=== PATIENT | female | born 1960 | race Caucasian/White ===

== ENCOUNTER → 2017-02-10 | Outpatient (CLI) | payer OTHER | LOC: FIMAGING 12:38 | PROVIDERS: ATTEND Family Medicine | DX: Z12.31 Encounter for screening mammogram for malignant neoplasm of breast (principal) | CPT/HCPCS: G0202 ==

== ENCOUNTER 2017-04-27 11:03 | Day surgery (SDC) | payer OTHER ==
[2017-04-27] MEDS ORDERED: LR 1,000 ML IV ONE (11:34)
[2017-04-27] MEDS ORDERED: LIDOCAINE 1% 2 ML INJ ID PRN (11:34)
[2017-04-27] MEDS ORDERED: ceFAZolin 2 GM/SWFI 2 GM/20 ML SYR IVP ONE (12:05)
[2017-04-27] MEDS ORDERED: ONDANSETRON 4 MG/2 ML VIAL IVP PRN (12:07)
[2017-04-27] MEDS ORDERED: HYDROCODONE/APAP 5/325 TAB PO PRN (12:07)
[2017-04-27] MEDS ORDERED: DEXAMETHASONE 4 MG/ML VIAL IVP PRN (12:07)
[2017-04-27] MEDS ORDERED: fentaNYL 100 MCG/2 ML INJ IVP PRN (12:07)
[2017-04-27] MEDS ORDERED: HYDROmorphONE/DILAUDID 1 MG/ML INJ IVP PRN (12:07)
[2017-04-27] MEDS ORDERED: NALOXONE HCL 0.4 MG/ML INJ IVP PRN (12:07)
[2017-04-27] MEDS ORDERED: MIDAZOLAM 2 MG/2 ML VIAL IVP ONE (12:07)
[2017-04-27] MEDS ORDERED: ALBUTEROL 3 ML DEYVIAL IH PRN (12:07)
--- NOTE | 2017-04-27 12:09 | PDANEPAE ---
ANE History of Present Illness L Foot ANE Past Medical History - Cardiovascular History Hx Hypertension: No Hx Arrhythmias: No Hx Chest Pain: No Hx Coronary Artery / Peripheral Vascular Disease: No Hx CHF / Valvular Disease: No Hx Palpitations: No - Pulmonary History Hx COPD: No Hx Asthma/Reactive Airway Disease: No Hx Recent Upper Respiratory Infection: No Hx Oxygen in Use at Home: No Hx Sleep Apnea: No Sleep Apnea Screening Result - Last Documented: Negative - Neurologic History Hx Cerebrovascular Accident: No Hx Seizures: No Hx Dementia: No - Endocrine History Hx Diabetes: No - Renal History Hx Renal Disorders: No - Liver History Hx Hepatic Disorders: No - Neurological & Psychiatric Hx Hx Neurological and Psychiatric Disorders: Yes Neurological / Psychiatric History Comment: neuropathy in feet - Cancer History Hx Cancer: No - Congenital Disorder History Hx Congenital Disorders: No - GI History Hx Gastrointestinal Disorders: No - Other Health History Other Health History: adult acne - Chronic Pain History Chronic Pain: No - Surgical History Prior Surgeries: colonoscopy. 2013 breast implants. abd mesh ANE Review of Systems Review of Systems: - Exercise capacity METS (RN): 4 METS ANE Patient History - Allergies Allergies/Adverse Reactions: Sulfa (Sulfonamide Antibiotics) Allergy (Severe, Verified 04/14/17 14:22) RASH,ITCHING,GETS VERY HYPER - Home Medications Home Medications: Hormones 06/08/14 [Last Taken 04/27/17] Azelastine 04/14/17 [Last Taken 04/27/17] Climara Pro Patch 04/14/17 [Last Taken 04/27/17] Progesterone, Micronized 04/14/17 [Last Taken 04/27/17] Zolpidem Tartrate 04/14/17 [Last Taken 04/25/17] - NPO status NPO Since - Liquids (Date): 04/27/17 NPO Since - Liquids (Time): 07:00 NPO Since - Solids (Date): 04/26/17 NPO Since - Solids (Time): 21:00 - Smoking Hx Smoking Status: Never smoked - Family Anes Hx Family Hx Anesthesia Complications: none ANE Labs/Vital Signs - Vital Signs Blood Pressure: 129/81 Heart Rate: 83 Respiratory Rate: 12 O2 Sat (%): 95 Height: 162.56 cm Weight: 55.792 kg ANE Physical Exam - Airway Neck exam: FROM Mallampati Score: Class 2 - Pulmonary Pulmonary: clear to auscultation - Cardiovascular Cardiovascular: regular rate and rhythym - ASA Status ASA Status: I ANE Anesthesia Plan Anesthesia Plan: MAC
[2017-04-27] MEDS ORDERED: PROPOFOL/EMULSION 500 MG/50 ML BOTTLE IV ONE ×3 (12:13→14:15)
[2017-04-27] MEDS ORDERED: HYDROmorphONE/DILAUDID 2 MG/ML INJ IVP PRN (12:13)
[2017-04-27] MEDS ORDERED: ROPIVACAINE HCL 150 MG/30 ML INJ ONE (12:14)
[2017-04-27] MEDS ORDERED: LIDOCAINE 2% 100 MG/5 ML SYR ONE (12:14)
[2017-04-27] MEDS ORDERED: LIDOCAINE 0.5% 50 ML SDV ONE (12:15)
[2017-04-27] MEDS ORDERED: BACITRACIN 50,000 UNITS/10 ML SYR IRR ONE (12:15)
[2017-04-27] MEDS ORDERED: DEXAMETHASONE 4 MG/ML VIAL ONE ×2 (12:15→14:19)
[2017-04-27] MEDS ORDERED: fentaNYL 100 MCG/2 ML INJ ONE ×2 (12:18→14:11)
[2017-04-27] MEDS ORDERED: BUPIVACAINE 0.5% 10 ML SDV ONE ×3 (12:55→14:59)
[2017-04-27] MEDS ORDERED: ONDANSETRON 4 MG/2 ML VIAL ONE (14:19)
[2017-04-27] MEDS ORDERED: HYDROCODONE/APAP 5/325 TAB ONE (15:31)
--- NOTE | 2017-04-27 15:47 | POSTOPPROG ---
Post Op Note Date of Operation: 04/27/17 Surgeon: María Galarza Mold Runner: none Anesthesiologist: Jed Mark MD Pre-op Diagnosis: hallux rigidus left Post-op Diagnosis: hallux rigidus left Indication: pain first mtpj . osteorthritis Procedure: cheilectomy with sun implant arthroplasty:CARTIVA IMPLANT Findings: advanced degeneration first MTPJ Inf/Abcess present in the surg proc area at time of surgery?: No Depth: Deep Incisional (Fascial) EBL: Minimal Complications: none
[2017-04-27 15:48] VITALS: TEMP 97.9
[2017-04-27 16:13] VITALS: BP 117/72; PULSE 78; RESP 14; O2SAT 96
--- NOTE | 2017-04-27 18:27 | GOP ---
[f rep st] OPERATIVE REPORT DATE OF OPERATION: 04/27/2017 SURGEON: María Galarza DPM ANESTHESIA: Monitored anesthesia care with light general. ANESTHESIOLOGIST: Jed Mark DO. PREOPERATIVE DIAGNOSIS: Hallux rigidus, left foot. POSTOPERATIVE DIAGNOSIS: Hallux rigidus, left foot. PROCEDURE PERFORMED: Cheilectomy with sun implant arthroplasty utilizing Cartiva implant. FINDINGS: INDICATIONS: Pain in the 1st metatarsophalangeal joint, progressing over years. At this time, patie nt elects to proceed with surgery. Preoperative x-rays demonstrate loss of joint space, dorsal bone spurring at the 1st metatarsal head and base of the phalanx. Degenerative changes of the 1st metatar sophalangeal joint. DESCRIPTION OF PROCEDURE: The patient was brought into the operating room, placed on the operating t able in the supine position. Intravenous sedation administered by the anesthesiologist. A posterior tibial peripheral nerve block was obtained utilizing a total of 20 cc of 1:1:1 mix of 1% xylocaine p shonda, 0.5% ropivacaine plain and 0.5% Marcaine plain. The lower extremity was prepped and draped in the usual sterile manner. After the limb had been elevated, it was exsanguinated with an Esmarch ban dage, and ankle tourniquet was inflated to 200 mmHg, and the procedure was begun. Webril padding uti lized under the ankle cuff. Attention was directed towards the dorsal medial aspect of the 1st metatarsophalangeal joint where a linear incision was created. Incision was carefully deepened with care to retract neurovascular stru ctures and clamp and cauterize bleeders. Tissue was noted to be synovitic at the 1st metatarsophalan geal joint, dorsal osteophyte very prominent at the base of the proximal phalanx. This was resected with a rongeur. Dorsal bone spur evident on the 1st metatarsal head, and the dorsal 80% of the carti jeffrey of the 1st metatarsal head was absent, exposed bone. More plantarly, the cartilage was noted to be thin. On the base of the proximal phalanx, the dorsal 40% of the cartilage was absent, plantarly thin. Utilizing a sagittal saw, a dorsal bone spur was resected and the site smoothened dorsally. The sagittal saw was also utilized to resect dorsal prominence at the base of the phalanx as well. S ites smoothened with a powered rotating bur. The wound was copiously irrigated with bacitracin irrig ation solution. K-wire was then driven down through the 1st metatarsal head in preparation for place ment of the implant. C-arm pictures confirming planned alignment and positioning. Then, utilizing [employer] drill bit, an 8 mm hole was created. Note preoperatively, intraoperatively it was decided that the 8 mm implant would fit the best. The site was drilled just shy of 3 mm. The wound was newspaper copy editor iously irrigated with bacitracin irrigation solution, and then the 8 mm Cartiva implant was placed wi thin the drill hole. It seated itself very well. Measurements were taken prior to placing the Carti va implant of the drill hole to ensure that the implant would not sink in too far, and then once the implant was placed, it was between 2-3 mm protruding medially and laterally. With passive range of m otion of the hallux, there was no impingement. Implant appeared to be seated very nicely. Hallux al ignment excellent. The wound was copiously irrigated with bacitracin irrigation solution. Capsular closure achieved with 2-0 and 3-0 Vicryl. Ankle tourniquet was released, and a normal hyperemic resp onse was noted to all digits. Subcutaneous closure achieved with 4-0 Monocryl, and the skin was clos ed with 4-0 Prolene in a horizontal mattress and simple interrupted suture manner. An additional 5 c c of 0.5% Marcaine plain was injected. Dressings include Xeroform, 4x4s, fluffs reinforced with tape , Jessica and an Enrike bandage. The patient tolerated the procedure and anesthesia well and left the ope rating room with vital signs stable and vascular status intact to all digits. There were no intraope rative complications. C-arm pictures and digital photos were taken as well to share with the patient . The patient's will be providing her transportation home. She was fitted with a cryo cuff. She is to follow up at our office in 2 days for wound check. Prognosis good. /[id number]/MODL
== END 2017-04-27 16:38 | disposition home or self-care (01) ==
LOC: FSGY 11:03
PROVIDERS: ATTEND Podiatrist
PROC: 0SRN0JZ Replacement of Left Metatarsal-Phalangeal Joint with Synthetic Substitute, Open Approach (ICD-10-PCS; principal; 2017-04-27 12:30)
DX: M20.22 Hallux rigidus, left foot (principal); M19.072 Primary osteoarthritis, left ankle and foot
CPT/HCPCS: J0690; J1100; J2001; J2250; J2405; J2704; J2795; J3010

== ENCOUNTER → 2018-05-12 | Outpatient (CLI) | payer OTHER | LOC: BMCIMAGING 08:08 | PROVIDERS: ATTEND Family Medicine | DX: Z12.31 Encounter for screening mammogram for malignant neoplasm of breast (principal) ==